=== PATIENT | female | born 1965 | race Caucasian/White ===

== ENCOUNTER 2018-10-21 00:39 | Emergency (ER) | payer MEDICARE, MEDICAID ==
[~2018-10-21] VITALS: Ht 154.9 cm; Wt 76.4 kg
[2018-10-21 01:50] LABS: CLARITY,URINE CLEAR (Clear); COLOR,URINE YELLOW (Yellow); GLUCOSE, URINE NEGATIVE (Neg); KETONES,URINE NEGATIVE (Neg); LEUKOCYTE ESTERASE ,URINE NEGATIVE (Neg); NITRITES, URINE NEGATIVE (Neg); OCCULT BLOOD,URINE SMALL (Neg); PH,URINE 5.5 (4.8-8.0); PROTEIN,URINE NEGATIVE (Neg); UROBILINOGEN,URINE 0.2 E.U/dL (0.2-1.0)
[2018-10-21 01:51] LABS: BASOPHILS # (AUTO) 0.1 X10'3 (0-0.2); BASOPHILS % (AUTO) 0.7 % (0-1); EOSINOPHILS # (AUTO) 0.3 X10'3 (0-0.9); EOSINOPHILS % (AUTO) 3.3 % (0-6); HEMATOCRIT 41.8 % (35.0-45.0); HEMOGLOBIN 14.2 g/dl (12.0-16.0); LYMPHOCYTES # (AUTO) 2.7 X10'3 (1.1-4.8); LYMPHOCYTES % (AUTO) 34.2 % (21-51); MEAN CORPUSCULAR HEMOGLOBIN 31.4 PG (27.0-31.0); MEAN CORPUSCULAR HGB CONC 34.1 g/dL (33.0-36.5); MEAN CORPUSCULAR VOLUME 92.2 FL (78-98); MEAN PLATELET VOLUME 8.5 FL (7.4-10.4); MONOCYTES # (AUTO) 0.6 X10'3 (0-0.9); MONOCYTES % (AUTO) 7.9 % (2-12); NEUTROPHILS # (AUTO) 4.3 X10'3 (1.8-7.7); NEUTROPHILS % (AUTO) 53.9 % (42-75); PLATELET COUNT 317 X10'3 (140-440); RED BLOOD COUNT 4.53 X10'6 (4.20-5.60); RED CELL DISTRIBUTION WIDTH 12.3 % (11.5-14.5)
[2018-10-21 01:58] LABS: BACTERIA,URINE FEW /HPF (Neg); CAL OXALATE CRYSTALS 3+ /HPF (NEGATIVE); RBC,URINE 0-2 /HPF (0-2); SQUAMOUS EPITHELIAL CELL,UR FEW /LPF (FEW); UA COLLECTION TYPE CLN CATCH MIDSTREAM; WBC,URINE 0-4 /HPF (0-4)
[2018-10-21 02:01] LABS: URINE AMPHETAMINE SCREEN POSITIVE (Neg); URINE BARBITUATE SCREEN NEGATIVE (Neg); URINE BENZODIAZEPINES SCREEN NEGATIVE (Neg); URINE CANNABINOID SCREEN NEGATIVE (Neg); URINE COCAINE SCREEN NEGATIVE (Neg); URINE METHADONE SCREEN NEGATIVE (Neg); URINE OPIATE SCREEN NEGATIVE (Neg); URINE PHENCYCLIDINE SCREEN NEGATIVE (Neg)
[2018-10-21 02:02] LABS: ALANINE AMINOTRANSFERASE 68 U/L (12-78); ALBUMIN 3.6 G/DL (3.4-5.0); ALBUMIN/GLOBULIN RATIO 1.1 (1.1-1.5); ALKALINE PHOSPHATASE 115 IU/L (46-116); ANION GAP 12 (8-16); ASPARTATE AMINO TRANSFERASE 26 U/L (10-37); BILIRUBIN,TOTAL 0.3 MG/DL (0.1-1.0); BLOOD UREA NITROGEN 12 MG/DL (7-18); CALCIUM 8.6 MG/DL (8.5-10.1); CHLORIDE 106 MMOL/L (99-107); CREATININE 1.09 MG/DL (0.40-0.90); GLUCOSE 148 MG/DL (70-104); POTASSIUM 3.9 MMOL/L (3.5-5.1); SODIUM 142 MMOL/L (135-145); TOTAL CARBON DIOXIDE 24.1 MMOL/L (24-32); eGFR 52 ML/MIN
[2018-10-21 02:13] LABS: ACETAMINOPHEN < 2.0 UG/ML (10-30); ETHANOL < 0.010 GM/DL (0.0-0.010)
[2018-10-21] MEDS ORDERED: LUBI8CAP PO (03:04)
[2018-10-21] MEDS ORDERED: INDO-12 PO (03:10)
[2018-10-21] MEDS ORDERED: TOPI25TA15 PO (03:11)
--- NOTE | 2018-10-21 04:57 | NUR ---
Packet faxed to [facility]. Unable to confirm receipt of packet as out of business hours.
[2018-10-21] MEDS: topiramate 25mg tablet PO SCH ×2 (07:15→20:00)
[2018-10-21] MEDS: levoTHYROXINE 25mcg tablet PO SCH (07:15)
[2018-10-21] MEDS: LUBIPROSTONE 8 MG PO SCH ×2 (07:53→20:35)
[2018-10-21] MEDS: indomethacin 25mg capsule PO SCH ×2 (07:53→20:33)
--- NOTE | 2018-10-21 08:16 | NUR ---
Pt. ate breakfast and took am meds.
--- NOTE | 2018-10-21 09:11 | NUR ---
Franky hargrove [facility] talking with patient now. Addendum: 10/21/18 at 1613 by JACEK bharati GALLO from talking with pt.
--- NOTE | 2018-10-21 10:19 | NUR ---
Pt. lying on left side with eyes closed. No obvious signs of distress noted.
--- NOTE | 2018-10-21 13:16 | NUR ---
Pt. lying supine in bed. Continue to monitor.
--- NOTE | 2018-10-21 14:42 | NUR ---
Pt. lying on left side in bed with eyes closed and even, unlabored respirations.
--- NOTE | 2018-10-21 15:31 | NUR ---
Pt. has very small amount of emesis. Wash cloth and emesis bag provided. States she has "gallbladder issues." Will continue to monitor.
--- NOTE | 2018-10-21 16:12 | NUR ---
Pt. up to use bathroom.
--- NOTE | 2018-10-21 18:01 | NUR ---
Pt. sitting up eating dinner.
--- NOTE | 2018-10-21 21:24 | NUR ---
Pt's cart placed in decon shower outside of ambulance bay doors.
--- NOTE | 2018-10-21 22:08 | NUR ---
pt is sleeping, resp even and unlabored, on her rt side.
--- NOTE | 2018-10-22 00:54 | NUR ---
pt sleeping on lt side. resp even/unlabored
--- NOTE | 2018-10-22 02:13 | NUR ---
pt sleeping without blanket. resp even/unlabored
--- NOTE | 2018-10-22 04:34 | NUR ---
pt up to restroom, returned to bed to go back to sleep
--- NOTE | 2018-10-22 06:30 | NUR ---
Asleep upon change of shift observation. Color and breathing WNL. Will continue to monitor.
[2018-10-22] MEDS: levoTHYROXINE 25mcg tablet PO SCH (08:00)
[2018-10-22] MEDS: topiramate 25mg tablet PO SCH ×2 (08:00→19:36)
[2018-10-22] MEDS: indomethacin 25mg capsule PO SCH ×2 (08:00→19:36)
[2018-10-22] MEDS: LUBIPROSTONE 8 MG PO SCH ×2 (08:01→19:36)
--- NOTE | 2018-10-22 08:30 | NUR ---
Awakened for breakfast. Ate 100% of her meal. Admitted to current suicidal ideation. Her plan is to take "an overdose of pills." Stated she made a suicide attempt in the past by "pills and hanging."
--- NOTE | 2018-10-22 09:28 | NUR ---
GIVING NURSE A BREAK. PT. RESTING COMFORTABLY IN BED, PT. IS IN NO DISTRESS, AND IS SLEEPING. WILL CONTINUE TO MONITOR.
--- NOTE | 2018-10-22 11:30 | NUR ---
Sleeping through the morning except to get up to use the bathroom. Remains within the line of sight of staff at all times.
--- NOTE | 2018-10-22 13:00 | NUR ---
Served lunch tray. Ate 100% of her meal. Quiet and withdrawn at this time.
--- NOTE | 2018-10-22 15:31 | NUR ---
Continues to sleep. Color and breathing within normal limits. Will continue to monitor.
--- NOTE | 2018-10-22 19:36 | NUR ---
pt is pleasant, calm. got up to use the restroom. she asked "why am I still here, does nobody want me?" and became tearful. I explained to pt it was nothing like that and that [facility] is evaulating her they are just full but I was told by [facility] RN that they are to have discharges tomorrow so she will hopefully go there then. pt says okay, and asked more about [facility] which I explained they have more resources and therapies. pt does not want to take her nighttime meds as she feels fine. she says her toileting has been regular and she has no swelling or pain. pt laying in bed
--- NOTE | 2018-10-22 23:25 | NUR ---
pt sleeping on lt side. resp even/unlabored
--- NOTE | 2018-10-23 02:25 | NUR ---
pt up to restroom. returned to resting in bed. no needs at this time
--- NOTE | 2018-10-23 05:24 | NUR ---
pt sleeping on stomach. resp even/unlabored
--- NOTE | 2018-10-23 06:00 | NUR ---
Pt is sleeping.
[2018-10-23 06:14] VITALS: BP 99/59
[2018-10-23] MEDS: levoTHYROXINE 25mcg tablet PO SCH (07:25)
[2018-10-23] MEDS: topiramate 25mg tablet PO SCH (07:25)
[2018-10-23] MEDS: LUBIPROSTONE 8 MG PO SCH (07:27)
[2018-10-23] MEDS: indomethacin 25mg capsule PO SCH (07:27)
--- NOTE | 2018-10-23 07:45 | NUR ---
Pt states that she came a long way and paid $250 to get to this hospital to have her gallblader removed and have her psych needs met. 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 She doesnt believe she will have her needs met due to someone telling her that she will be placed in a psychiatric facility.
--- NOTE | 2018-10-23 09:03 | NUR ---
pt ambulated to the bathroom
--- NOTE | 2018-10-23 10:52 | NUR ---
pt is laying in bed after brushing hair.
--- NOTE | 2018-10-23 12:51 | NUR ---
pt is laying in bed. occasionally reading a book
--- NOTE | 2018-10-23 13:45 | NUR ---
Pt anxiety increasing. Spoke with ER who asked us to call Dr. Callaway. Dr. Callaway gave an order for Hydroxizine. Medication orders have been placed
[2018-10-23] MEDS ORDERED: hydrOXYzine 25 MG tablet PO PRN (14:05)
--- NOTE | 2018-10-23 15:30 | NUR ---
Pt resting in bed.
== END 2018-10-23 17:06 ==
LOC: ER 00:39
DX: R45.851 Suicidal ideations (principal); R94.6 Abnormal results of thyroid function studies; Z56.0 Unemployment, unspecified
CPT/HCPCS: 36415; 80053; 80305; 80320; 80329; 81001; 84443; 85025; 99285; Q0177; Z7610